=== PATIENT | female | born 1970 | race Caucasian/White ===

== ENCOUNTER 2019-06-18 10:38 | Outpatient (CLI) | payer OTHER ==
--- NOTE | 2019-06-18 11:07 | RAD ---
XR Cervical Spine 4 View Min History: Cervical radiculopathy without trauma Comparison: None. Findings: No acute fracture of the cervical spine. Moderate narrowing of the C4-5 and C5-6 disc space s. Degenerative 3 mm C4-5 retrolisthesis. Mild facet arthropathy at C3-4. Open-mouth odontoid view is limited due to the numerous capsular teeth. Mild osseous neural foraminal narrowing on the right at C3-4 and on the left at C3-4. Impression: Mild degenerative changes. No acute fracture or malalignment.
== END 2019-06-18 10:39 | disposition home or self-care (01) ==
LOC: MADRAD 10:38
PROVIDERS: ATTEND Family Medicine
DX: M47.22 Other spondylosis with radiculopathy, cervical region (principal)
CPT/HCPCS: 72050

== ENCOUNTER 2019-08-14 14:00 | Outpatient (CLI) | payer OTHER ==
--- NOTE | 2019-08-14 14:22 | RAD ---
EXAM: Chest 2 views: HISTORY: COPD exacerbation COMPARISON: 08/02/2009 FINDINGS: There is a normal-sized cardiomediastinal silhouette. There is no evidence of consolidation, mass, or pleural effusion. The bones are unremarkable. IMPRESSION: No evidence of acute cardiopulmonary disease
== END 2019-08-14 14:01 | disposition home or self-care (01) ==
LOC: MADRAD 14:00
PROVIDERS: ATTEND Family Medicine
DX: J44.1 Chronic obstructive pulmonary disease with (acute) exacerbation (principal)
CPT/HCPCS: 71046

== ENCOUNTER 2020-04-10 08:38 | Outpatient (CLI) | payer OTHER ==
--- NOTE | 2020-04-10 09:19 | RAD ---
PA AND LATERAL VIEWS CHEST: Date: 04/10/2020 HISTORY: Cough. COMPARISON: 08/14/2019. FINDINGS: The heart size is normal. The lungs are expanded without focal areas of consolidation, pneumothoraces , or pleural effusions. No acute osseous abnormalities are seen. IMPRESSION: No radiographic evidence of acute cardiopulmonary process. POS: [facility]
== END 2020-04-10 08:39 | disposition home or self-care (01) ==
LOC: MADRAD 08:38
PROVIDERS: ATTEND Nurse Practitioner Family
DX: J44.1 Chronic obstructive pulmonary disease with (acute) exacerbation (principal); R09.89 Other specified symptoms and signs involving the circulatory and respiratory systems
CPT/HCPCS: 71046